=== PATIENT | female | born 1955 | race Caucasian/White ===

== ENCOUNTER → 2016-11-26 | Outpatient (CLI) | payer BC ==
--- NOTE | 2016-11-26 09:25 | RAD ---
Examination: X-rays of the right elbow. Clinical history: Complaining of pain in the right wrist extending into right elbow. Technique: Three views of the right elbow were obtained. Comparison: None available. Findings: No acute fracture, dislocation, or destructive bony lesion is noted. No arthropathy is noted. No joint effusion or soft tissue abnormality is noted. Impression: 1. Negative x-rays of the right elbow. Reported By:
--- NOTE | 2016-11-26 09:28 | RAD ---
Right hand, three views Indication: Wrist pain and numbness Comparison: None Findings: No acute fracture or malalignment is identified. There are mild degenerative changes of the index and little finger DIP joints. Remaining joint spaces are preserved without significant degener ative or erosive change. There is a tiny radiopaque density adjacent to the thumb metacarpal, which i s only appreciated on the lateral view and is likely artifact or external to the patient. Correlation recommended. Remaining soft tissues are unremarkable. Impression: Mild degenerative changes, as above without acute osseous abnormality. Reported By:
== END | disposition home or self-care (01) ==
LOC: RAD 07:46
PROVIDERS: ATTEND Specialist
DX: G56.01 Carpal tunnel syndrome, right upper limb (principal); M19.031 Primary osteoarthritis, right wrist
CPT/HCPCS: 73070; 73130